=== PATIENT | male | born 1960 | race Caucasian/White ===

== ENCOUNTER 2018-07-01 11:38 | Inpatient (IN) | payer BC, SELFPAY ==
[2018-07-01] MEDS ORDERED: Lidocaine 1% PF 5 ML VIAL ONE (12:36)
[2018-07-01] MEDS ORDERED: Ondansetron HCl/PF 4 MG/2 ML Vial ONE (12:36)
[2018-07-01] MEDS ORDERED: PROPOFOL 200 MG/20 ML VIAL ONE (12:36)
[2018-07-01 12:45] LABS: #Basophils 0.1 thou/uL (0.0-0.2); #Lymphocytes 1.6 thou/uL (1.20-3.40); #Monocytes 0.9 thou/uL (0.11-0.59); #Neutrophils 8.3 thou/uL (1.40-6.50); %Basophils 0.6 % (0.0-1.0); %Eosinophils 0.3 % (0.0-10.0); %Lymphocytes 14.6 % (21.0-51.0); %Monocytes 8.6 % (0.0-10.0); Hemoglobin 15.2 g/dL (14.0-18.0); Mean Corpuscular HGB CONC 33.5 g/dL (32.0-36.0); Mean Corpuscular Hemoglobin 29.1 pg (27.0-31.0); Mean Corpuscular Volume 86.7 fL (78.0-98.0); Mean Platelet Volume 5.4 fL (7.4-10.4); Platelet Count 632 thou/uL (130-400); RBC Distribution Width 11.7 % (11.5-14.5); Red Blood Cell (RBC) Count 5.23 mill/uL (4.70-6.10); White Blood Cell (WBC) Count 10.9 thou/uL (4.8-10.8)
[2018-07-01 13:08] LABS: ALT (SGPT) 13 U/L (8-55); AST (SGOT) 14 U/L (5-34); Albumin 3.7 g/dL (3.5-5.0); Alkaline Phosphatase 62 U/L (40-150); Anion Gap 17 mmol/L (10-20); BUN (Urea Nitrogen) 26 mg/dL (8.4-25.7); Bilirubin, Total 0.5 mg/dL (0.2-1.2); Calc. Creatinine Clearance 0 mL/min (70-130); Calcium 10.9 mg/dL (7.8-10.44); Carbon Dioxide 24 mmol/L (22-29); Chloride 95 mmol/L (98-107); Estimated GFR-MDRD 50; Globulin 3.9 g/dL (2.4-3.5); Glucose 401 mg/dL (70-105); Potassium 5.5 mmol/L (3.5-5.1); Protein, Total 7.6 g/dL (6.0-8.3); Sodium 130 mmol/L (136-145)
--- NOTE | 2018-07-01 13:41 | RAD ---
LEFT FOOT 3 VIEWS: Date: 07/01/18 HISTORY: Toe infection. Foot pain. FINDINGS/IMPRESSION: No fracture, dislocation, bony destruction, or periosteal reaction is seen. A plantar calcaneal spur is present. If there is concern for osteomyelitis, further evaluation with MRI should be performed. POS: WILLIAM
--- NOTE | 2018-07-01 14:27 | HP ---
DATE OF ADMISSION: 07/01/2018 PRIMARY CARE PHYSICIAN: [facility]. REASON FOR ADMISSION: Acute kidney failure, abnormal electrolytes, left diabetic foot infection, uncontrolled diabetes. HISTORY OF PRESENT ILLNESS: A 58-year-old male who has a history of diabetes type 2. He was on insulin as well as metformin. He is not taking any medication for the last couple of months. The patient is in March with his . Since then, the patient is going downhill. He was living in his poor home environment. A few weeks ago, the patient had a heavy object fell down on his left foot. Subsequently, he had inflammatory response in his left foot, which was initially improving, but when he stepped down to stagnated water, since then his left foot is getting swollen, erythematous, tender. The patient saw his primary care physician about a week ago. At that time, primary care physician did bedside debridement as well as the patient was given daily intramuscular antibiotic therapy in his office and the patient was prescribed doxycycline and Flagyl. The patient has completed antibiotic course, but he is not improving. Today, he had regular followup visit with his primary care physician and found with worsening of swelling, erythema and tenderness and that is why he was directed to ER. In the emergency room, x-ray of foot showed soft tissue swelling, but no bony involvement. He has acute kidney failure and abnormal electrolytes. He has uncontrolled blood sugar. The patient is being admitted to medical floor for diabetic foot infection. PAST MEDICAL HISTORY: Diabetes type 2 requiring insulin, dyslipidemia. PAST SURGICAL HISTORY: Wiggins teeth removal. PAST PSYCHIATRIC HISTORY: Reviewed and negative. SOCIAL HISTORY: The patient is . He denies any smoking, alcohol or other illicit drug abuse. FAMILY HISTORY: Diabetes runs among several family members. No family history of coronary artery disease, stroke or cancer. ALLERGIES: PENICILLIN. CURRENT HOME MEDICATIONS: The patient is currently not taking any medication. EMERGENCY ROOM COURSE: The patient has received vancomycin and IV fluid. REVIEW OF SYSTEM: All review of system reviewed and negative except as mentioned in HPI. PHYSICAL EXAMINATION: VITAL SIGNS: On arrival, blood pressure 108/76, pulse 96, respiratory rate 16, temperature 98.1, saturation 97% on room air, weight 104.3 kilograms. GENERAL: The patient is currently alert, awake, in no obvious acute distress. HEAD: Normocephalic, atraumatic. EYES: Pupils round and reactive to light. Extraocular muscle intact. ENT: Oropharynx within normal limits. Moist mucous membrane. No oral lesion, no pharyngeal erythema, no exudate. NECK: Supple, no JVD, no thyromegaly, no carotid bruit, no jugular venous distention. LUNGS: Clear to auscultation without any rhonchi or rales. CARDIAC: S1, S2 regular. No murmur, no gallop, no rub. ABDOMEN: Soft, bowel sounds present, nontender, nondistended. No organomegaly , no mass, no suprapubic tenderness. BACK: Unremarkable. No CVA tenderness. EXTREMITIES: Upper extremities, passive movement of all joints are normal. Lower extremities, left foot is swollen, gangrenous and erythematous changes in plantar aspect of left foot with swollen and purulent drainage from left great toe. NEUROLOGIC: Nonfocal examination. SKIN: No skin rash other than diabetic wet gangrene on the left foot. HEMATOLOGICAL: No lymphadenopathy. PSYCHIATRIC: Normal affect. SIGNIFICANT LABORATORY DATA: CBC, WBC 10.9, hemoglobin 15.2, platelets 632, 000. Lactic acid 1.6. BMP, sodium 130, potassium 5.5, chloride 95, carbon dioxide 24, anion gap 17, BUN 26, creatinine 1.44, glucose 401, calcium 10.9. LFT, albumin 3.7, globulin 3.9, protein 7.6, AST 14, ALT 13, alkaline phosphatase 62. IMAGING: X-ray foot showing soft tissue swelling without any clear cut bony involvement. ASSESSMENT AND PLAN: 1. Left foot diabetic foot infection with wet gangrene. The patient will need MRI foot to rule out underlying osteomyelitis. Most likely, the patient will need surgical debridement. We will consult Wound Care team for wound care as well as general surgeon for incision and debridement. The patient will need broad spectrum antibiotic therapy with vancomycin and Zosyn. At this point, the patient's allergic reaction with penicillin is unclear and undocumented. We will also prescribe Florastor for probiotics. His pain will be controlled with morphine. 2. Diabetes type 2, uncontrolled. We will start insulin 70/30, 10 units subcu a.c. and at bedtime along with Humalog insulin as per moderate sliding scale. Diabetic diet will be given. 3. Acute kidney failure. The patient will be given IV fluid with normal saline 100 mL per hour. Most likely, this is related with underlying infection as well as the patient was taking ibuprofen for the last 1 week. That might have contributed to his renal failure. 4. Hyponatremia and hyperkalemia, likely due to renal failure as well as non- steroidal anti-inflammatory drug use. The patient will be given IV fluid and we will repeat BMP tomorrow. 5. Deep venous thrombosis prophylaxis, Lovenox 40 mg subcu daily. 6. Gastrointestinal prophylaxis, Pepcid 20 mg p.o. b.i.d. 7. Code status: The patient is full code. The patient does not have any surrogate decision maker. Disposition plan based on clinical course. We are expecting the patient's stay in hospital more than 2 midnights. Plan of care discussed with the patient and the patient's ex- at bedside in the emergency room. CIERRA
[2018-07-01] MEDS ORDERED: Sodium Chloride 0.65% Nasal 44 ML BOT EA NARE PRN (15:40)
[2018-07-01] MEDS ORDERED: Loperamide HCl 2 MG CAP PO PRN (15:40)
[2018-07-01] MEDS ORDERED: Dextrose 5% in Water 1,000 ML IV PRN (15:40)
[2018-07-01] MEDS ORDERED: Senokot 8.6 MG TAB PO PRN (15:40)
[2018-07-01] MEDS ORDERED: Ondansetron ODT 4 MG TAB SL PRN (15:40)
[2018-07-01] MEDS ORDERED: Ondansetron HCl/PF 4 MG/2 ML Vial IVP PRN ×3 (15:40→20:12)
[2018-07-01] MEDS ORDERED: Milk Of Magnesia 30 ML UDCUP PO PRN (15:40)
[2018-07-01] MEDS ORDERED: Loratadine 10 MG TAB PO PRN (15:40)
[2018-07-01] MEDS ORDERED: hydrALAZINE 20 MG/ML VIAL SLOW IVP PRN (15:40)
[2018-07-01] MEDS ORDERED: Chloraseptic Spray 180 ml Bottle PO PRN (15:40)
[2018-07-01] MEDS ORDERED: Mag-Al 1200 mg/1200 mg/30 ML UDCUP PO PRN (15:40)
[2018-07-01] MEDS ORDERED: Eucerin (Mineral Oil/Petrolatum,White) 30 gm Jar TOP PRN (15:40)
[2018-07-01] MEDS ORDERED: Acetaminophen 325 MG TAB PO PRN ×2 (15:40)
[2018-07-01] MEDS ORDERED: Diabetic Tussin 200 MG/10 ML UDCUP PO PRN (15:40)
[2018-07-01] MEDS ORDERED: Dextrose 50% Abboject 50 ML SYRINGE SLOW IVP PRN (15:40)
[2018-07-01] MEDS ORDERED: Ondansetron ODT 4 MG TAB PO PRN (15:40)
[2018-07-01] MEDS ORDERED: Artificial Tears 18 DROP/0.9 ML EA EYE PRN (15:40)
[2018-07-01] MEDS ORDERED: Zolpidem Tartrate 5 MG TAB PO PRN (15:40)
[2018-07-01 15:58] VITALS: BMI 25.1
[2018-07-01] MEDS: Sodium Chloride 0.9% 1,000 ML IV SCH (16:15)
[2018-07-01] MEDS: Piperacillin/Tazobactam 3.375 GM in Sodium Chloride 0.9% 100 ML IVPB SCH ×2 (17:23→23:32)
[2018-07-01] MEDS: Insulin NPH/Reg Insulin Hm 300 UNITS/3 ML VIAL SC SCH (17:24)
[2018-07-01] MEDS ORDERED: Insulin Regular 300 UNITS/3 ML VIAL ONE (18:52)
--- NOTE | 2018-07-01 19:14 | HP ---
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 He had emergency room and he was admitted at 1 0:30 this morning. He has listed an allergy to PENICILLIN, but vancomycin and Zosyn has been ordered . X-rays of the left foot are unremarkable. Clinical examination reveals palpable pulses. He does not smoke. He has severe diabetic infection in left foot with blistering skin, plantar aspect of eugene t with underlying pus and hematoma. He has an open wound in the medial aspect of left great toe comm unicating to the metatarsophalangeal joint by digital palpation. He was admitted at 10:30 this paty roca, I received the consult at 17:00. Diabetic diet has been ordered. I have stopped that fortunatel y has not eaten. ALLERGIES: PENICILLIN. TOBACCO: None. ALCOHOL: Socially, rarely. MEDICATIONS AT HOME: He takes doxycycline, metronidazole. He currently is not taking any medication s. PAST MEDICAL HISTORY: Diabetes mellitus type 2 requiring insulin, dyslipidemia, although he is not t aking medications, also wisdom teeth extraction. SOCIAL HISTORY: Patient is single, from his . REVIEW OF SYSTEMS: Noncontributory. FAMILY HISTORY: Noncontributory. PHYSICAL EXAMINATION: VITAL SIGNS: 6 feet, 295 pounds, 25 BMI, 98.5, 66, 145/75. HEAD, EYES, EARS, NOSE, AND THROAT: Unremarkable. LUNGS: Clear to auscultation. CARDIAC: Regular rate and rhythm without murmur or gallop. ABDOMEN: Soft, nontender. EXTREMITIES: Palpable femoral, popliteal, dorsalis pedis pulses and posterior tibial pulses. Left f oot reveals wound extending to the bone and metatarsophalangeal joint. There is severe edema and kamryn lulitis. There is blistering skin extending plantar midfoot with copious amount of hematoma and puru lent material. There is open wound on the plantar aspect of the foot. Also, that it is so tender, I cannot probe it. LABORATORY DATA: Sodium 130, potassium 5.5, BUN 26, creatinine 1.44, white count 10, hemoglobin 15. ASSESSMENT AND PLAN: 1. Noncompliant diabetic with a severe diabetic foot infection, left. Clinically, he has severe arcelia p infection with stigmata of advanced skin infection and deep tissue infection. Would recommend inci meme and drainage, probably resulting amputation of the left great toe and adjacent toe as indicated. Risks and benefits explained open wound that will heal secondarily. 2. PENICILLIN allergy, did discontinue Zosyn.
[2018-07-01] MEDS ORDERED: Acetaminophen 500 MG TAB PO PRN (19:37)
[2018-07-01] MEDS ORDERED: traMADol HCl 50 MG TAB PO PRN ×2 (19:37)
[2018-07-01] MEDS ORDERED: Midazolam HCl 2 mg/2 ml Vial ONE (20:12)
[2018-07-01] MEDS ORDERED: Promethazine HCl 25 MG/ML VIAL IM PRN (20:12)
[2018-07-01] MEDS ORDERED: Fentanyl 100 MCG/2 ML VIAL ONE ×4 (20:12→20:50)
[2018-07-01] MEDS ORDERED: Promethazine HCl 25 MG/ML VIAL SLOW IVP PRN (20:12)
[2018-07-01] MEDS ORDERED: Promethazine HCl 25 MG/ML VIAL ONE (20:42)
[2018-07-01] MEDS: Famotidine 20 MG TAB PO SCH (21:58)
[2018-07-01] MEDS: Atorvastatin Calcium 20 MG TAB PO SCH (21:58)
[2018-07-01] MEDS: Morphine 2 MG/ML SYRINGE SLOW IVP PRN (23:24)
--- NOTE | 2018-07-02 01:42 | OP ---
DATE: 07/01/2018 PREOPERATIVE DIAGNOSES: Severe necrotizing diabetic infection, left foot; noncompliant diabetic, not taking his medications. POSTOPERATIVE DIAGNOSES: Severe necrotizing diabetic infection, left foot; noncompliant diabetic, n ot taking his medications. PROCEDURE: Amputation of left great toe and metatarsal. Wound in left toe healing by secondary inte ntion. Good blood supply. Palpable pedal pulses. Suture ligation required for hemostasis. Cautery required. SURGEON: Denis Sears MD ANESTHESIA: General. FINDINGS: Blistered skin with underlying pus, severe, deep wound into the metatarsophalangeal joint with necrotizing infection, soft tissues, culture and sensitivity submitted. PROCEDURE IN DETAIL: The patient was taken to the operating room, where under general anesthesia, le ft lower extremity was prepared with ChloraPrep and draped in routine infection. A deep tract was no nataly in the webspace of the great toe extending to the plantar aspect of the foot, connecting with the soft tissue defect plantar. Ray amputation of the left great toe undertaken, preserving as much ski n as possible, excised the open wounds. Metatarsal was transected with a bone cutter, resected proxi harpreet with rongeur. Hemostasis was obtained with a cautery as connective tissue debrided and suture ligation with [id number] [id number] Vicryl was used for small arterial bleeding. Good hemostasis was n oted. Wound was irrigated with saline, wet-to-dry dressings applied. The patient tolerated the proc edure well.
[2018-07-02] MEDS: Vancomycin HCl 1.25 GM in Sodium Chloride 0.9% 250 ML 250 ML IVPB SCH ×2 (01:55→11:25)
[2018-07-02] MEDS: HYDROcodone/Acetaminophen 5/325 mg Tablet PO PRN ×3 (02:08→10:00)
[2018-07-02] MEDS: Morphine 2 MG/ML SYRINGE SLOW IVP PRN ×2 (03:30→10:00)
[2018-07-02] MEDS: HumaLOG 300 UNITS/3 ML VIAL SC PRN ×3 (05:39→21:27)
[2018-07-02 05:41] LABS: Hemoglobin A1c 14.1 % (4.0-6.0)
[2018-07-02] MEDS: Piperacillin/Tazobactam 3.375 GM in Sodium Chloride 0.9% 100 ML IVPB SCH ×3 (05:41→17:55)
[2018-07-02 05:50] LABS: #Eosinphils 0.1 thou/uL (0.0-0.7); #Lymphocytes 2.4 thou/uL (1.20-3.40); #Monocytes 1.1 thou/uL (0.11-0.59); #Neutrophils 6.9 thou/uL (1.40-6.50); %Basophils 0.2 % (0.0-1.0); %Eosinophils 1.2 % (0.0-10.0); %Monocytes 10.4 % (0.0-10.0); %Neutrophils 65.3 % (42.0-75.0); Mean Corpuscular HGB CONC 33.8 g/dL (32.0-36.0); Mean Corpuscular Hemoglobin 29.7 pg (27.0-31.0); Mean Corpuscular Volume 87.7 fL (78.0-98.0); Mean Platelet Volume 5.6 fL (7.4-10.4); Platelet Count 481 thou/uL (130-400); RBC Distribution Width 11.8 % (11.5-14.5); Red Blood Cell (RBC) Count 4.37 mill/uL (4.70-6.10); White Blood Cell (WBC) Count 10.6 thou/uL (4.8-10.8)
[2018-07-02 06:34] LABS: ALT (SGPT) 10 U/L (8-55); AST (SGOT) 10 U/L (5-34); Alkaline Phosphatase 48 U/L (40-150); Anion Gap 10 mmol/L (10-20); BUN (Urea Nitrogen) 20 mg/dL (8.4-25.7); Bilirubin, Total 0.4 mg/dL (0.2-1.2); CRP (Inflammatory) 2.05 mg/dL (= or < 0.5); Calc. Creatinine Clearance 99 mL/min (70-130); Calcium 9.1 mg/dL (7.8-10.44); Carbon Dioxide 28 mmol/L (22-29); Cardiac Risk 3.8 (Less than 4.5); Chloride 100 mmol/L (98-107); Cholesterol 111 mg/dl (< 200 Desired); Estimated GFR-MDRD 76; Glucose 229 mg/dL (70-105); HDL Cholesterol 29 mg/dL (>60 Neg Risk); LDL Cholesterol, Calculated 58 mg/dL; Sodium 134 mmol/L (136-145); Triglycerides 122 mg/dL (Less than 150)
--- NOTE | 2018-07-02 07:33 | PRG ---
DATE OF SERVICE: 07/02/2018 Mike Dyer is status post amputation of left great toe and metatarsal. His dressing is dry. He segovia s been afebrile overnight, 98.4 degrees, 74, 155/83. Laboratories; gram stain revealed gram positive rods, gram positive cocci. He is on the appropriate antibiotics. Wound Care will place a wound VAC. I discussed with the patient's ex- yesterday hi s living situation and she showed me pictures, his house is very untidy, unkept and his ex- is co ncerned about his mental status and living situation. The patient states that he does have transport ation to in some way make it to Wound Care twice a week for a charitable wound VAC application. My p yara would be to continue intravenous antibiotics, place a wound VAC today. Plan discharge home or [facility] or some other arrangements per senior case manager later this week on oral antibiotics for 2 weeks and outpatient wound care, [facility] charitable VAC. The patient can weightbear as tolerated, ambulating about the room for necessary daily activities with postop shoe. I will see him in my off ice in 2 weeks post-discharge. We will see him later this week with wound VAC changes.
--- NOTE | 2018-07-02 07:43 | ADD-HP ---
ADDENDUM The patient is not allergic to penicillin. The patient states penicillin has caused diarrhea in the past. He does not have an allergy to penicillin.
[2018-07-02] MEDS: Famotidine 20 MG TAB PO SCH ×2 (07:44→21:25)
[2018-07-02] MEDS: Saccharomyces boulardii 250 MG CAP PO SCH (07:44)
[2018-07-02] MEDS: Enoxaparin Sodium 40 MG/0.4 ML SYRINGE SC SCH (07:44)
[2018-07-02] MEDS: Insulin NPH/Reg Insulin Hm 300 UNITS/3 ML VIAL SC SCH ×3 (07:45→15:40)
[2018-07-02] MEDS ORDERED: Polyethylene Glycol 3350 17 GM Packet PO SCH (09:00)
[2018-07-02] MEDS ORDERED: Morphine 4 MG/ML Carpuject SLOW IVP SCH (11:00)
[2018-07-02] MEDS ORDERED: Morphine 4 MG/ML VIAL SLOW IVP SCH (11:15)
[2018-07-02] MEDS: Sodium Chloride 0.9% 1,000 ML IV SCH (11:17)
[2018-07-02] MEDS ORDERED: Lidocaine 4% Topical Sol 50 ML BOT TOP PRN (11:21)
[2018-07-02] MEDS: HYDROcodone/Acetaminophen 10/325 mg Tablet PO PRN ×3 (12:12→21:24)
--- NOTE | 2018-07-02 19:11 | PDOC.PN ---
- Subjective Encounter Start Date: 07/02/18 Encounter Start Time: 11:00 Patient seen and examined for diabetic foot infection. Pain not well controlled. No other complaints. No overnight events - Objective Resuscitation Status: Resuscitation Status FULL:Full Resuscitation MAR Reviewed: Yes Vital Signs & Weight: Vital Signs (12 hours) Temp Pulse Resp BP 07/02/18 11:54 99 F 75 26 H 158/84 H 07/02/18 07:26 98.1 F 74 19 137/83 Weight Admit Weight 195 lb 8 oz Weight 195 lb 8 oz I&O: 07/01/18 07/02/18 07/03/18 06:59 06:59 06:59 Intake Total 200 Output Total 240 Balance -40 Result Diagrams: 07/02/18 03:44 07/02/18 03:44 Additional Labs: Accuchecks 07/02/18 07/02/18 07/02/18 15:26 11:53 05:29 POC Glucose 293 H 227 H 221 H 07/01/18 07/01/18 20:07 18:48 POC Glucose 285 H 340 H Radiology Reviewed by me: Yes (foot XR - no gas) Phys Exam - Physical Examination Constitutional: NAD Neck: no nodes, no JVD Respiratory: no wheezing, no rales, no rhonchi, clear to auscultation bilateral Cardiovascular: RRR, no rub no heaves/pulsations Gastrointestinal: soft, non-tender, no distention, positive bowel sounds Musculoskeletal: no edema foot dressing + Neurological: non-focal, normal sensation, moves all 4 limbs Psychiatric: normal affect, A&O x 3 Dx/Plan - Plan DVT proph w/SCDs IMPRESSION: 1. Sepsis due to diabetic foot infection s/p amputation of left great toe/ metatarsal 2. DM2 - uncontrolled 3. LEODAN on CKD2/Hyperkalemia - improving 4. Dyslipidemia / Hyponatremia PLAN: Adjust pain meds Cont current Atbx Consult periodicals clerk Cont sliding scale Change 70/30 to NPH 20 qam and 10 qpm Cont to monitor Review of Systems - Review of Systems Respiratory: negative: Cough, Dry, Shortness of Breath, Hemoptysis, SOB with Excertion, Pleuritic Pain, Sputum, Wheezing Cardiovascular: negative: chest pain, palpitations, orthopnea, paroxysmal nocturnal dyspnea, edema, light headedness, other - Medications/Allergies Allergies/Adverse Reactions: Allergies Allergy/AdvReac Type Severity Reaction Status Date / Time Penicillins AdvReac Mild Diarrhea Verified 07/02/18 15:00 Medications: Current Medications Acetaminophen (Tylenol) 650 mg PO Q4H PRN PRN Reason: Headache/Fever or Pain Acetaminophen (Tylenol) 1,000 mg PO Q6H PRN PRN Reason: Moderate to Severe Pain (6-10) Hydrocodone Bitart/Acetaminophen ([place] 5/325) 1 tab PO Q4H PRN PRN Reason: Moderate Pain (4-6) Last Admin: 07/02/18 10:00 Dose: 1 tab Hydrocodone Bitart/Acetaminophen ([place] 10/325) 1 tab PO Q4H PRN PRN Reason: Severe Pain (7-10) Last Admin: 07/02/18 15:41 Dose: 1 tab Al Hydroxide/Mg Hydroxide (Maalox) 30 ml PO Q6H PRN PRN Reason: Heartburn or Indigestion Artificial Tears (Tears Naturale) 0 drop EA EYE PRN PRN PRN Reason: Dry Eyes Atorvastatin Calcium (Lipitor) [address] [facility] Last Admin: 07/01/18 21:58 Dose: 20 mg Dextrose/Water (Dextrose 50%) 25 gm SLOW IVP PRN PRN PRN Reason: Hypoglycemia Enoxaparin Sodium (Lovenox) [address] [facility] Last Admin: 07/02/18 07:44 Dose: 40 mg Famotidine (Pepcid) [address] [facility] Last Admin: 07/02/18 07:44 Dose: 20 mg Glucagon (Glucagon) 1 mg IM PRN PRN PRN Reason: Hypoglycemia Guaifenesin (Robitussin Sf) 200 mg PO Q4H PRN PRN Reason: Cough Hydralazine HCl (Apresoline) 10 mg SLOW IVP Q4H PRN PRN Reason: Systolic BP > 180 Sodium Chloride (Normal Saline 0.9%) 1,000 mls @ 100 mls/hr IV .Q10H [facility] Last Admin: 07/02/18 11:17 Dose: 1,000 mls Dextrose/Water (D5w) 1,000 mls @ 0 mls/hr IV .Q0M PRN PRN Reason: Hypoglycemia Piperacillin Sod/Tazobactam (Sod 3.375 gm/ Sodium Chloride) 100 mls @ 200 mls/ hr IVPB Q6HR [facility] Last Admin: 07/02/18 17:55 Dose: 100 mls Vancomycin HCl 1.25 gm/ Sodium (Chloride) 250 mls @ 166.667 mls/hr IVPB 0100, 1300 [facility] Last Admin: 07/02/18 11:25 Dose: 250 mls Insulin Human Isoph/Insulin Regular (Humulin 70/30) [address] [facility] Last Admin: 07/02/18 15:40 Dose: 10 unit Insulin Human Lispro (Humalog) 0 units SC .MODERATE SLIDING SC PRN PRN Reason: Moderate Correctional Scale Last Admin: 07/02/18 15:39 Dose: 6 unit Insulin Human Lispro (Humalog) 0 units SC .BEDTIME SLIDING SC PRN PRN Reason: Bedtime Correctional Scale Lidocaine HCl (Xylocaine 4% Topical Belkis) 0 ml TOP PRN PRN PRN Reason: WOUND VAC DRESSING CHANGES Loperamide HCl (Imodium) 2 mg PO PRN PRN PRN Reason: Diarrhea/Loose Stools Loratadine (Claritin) 10 mg PO DAILYPRN PRN PRN Reason: Sinus Symptoms Magnesium Hydroxide (Milk Of Magnesium) 30 ml PO DAILYPRN PRN PRN Reason: Constipation Mineral Oil/White Petrolatum (Eucerin Cream) 0 gm TOP BIDPRN PRN PRN Reason: Dry Skin Miscellaneous Medication (Pharmacy To Dose) 1 each IVPB ONE PRN PRN Reason: Pharmacy to dose Stop: 07/11/18 15:41 Morphine Sulfate (Morphine) 2 mg SLOW IVP Q4H PRN PRN Reason: Pain Last Admin: 07/02/18 10:00 Dose: 2 mg Morphine Sulfate (Morphine) 4 mg SLOW IVP Q4H PRN PRN Reason: Severe Pain (7-10) Stop: 07/03/18 10:50 Ondansetron HCl (Zofran Odt) 4 mg PO Q6H PRN PRN Reason: Nausea/Vomiting Ondansetron HCl (Zofran) 4 mg IVP Q6H PRN PRN Reason: Nausea/Vomiting Phenol (Chloraseptic [place] 180 Ml Bot) 0 ml PO PRN PRN PRN Reason: Sore Throat Polyethylene Glycol (Miralax) [address] [facility] Saccharomyces Boulardii (Florastor) 250 mg PO DAILY [facility] Last Admin: 07/02/18 07:44 Dose: 250 mg Senna (Senokot) 2 tab PO HSPRN PRN PRN Reason: Constipation Senna/Docusate Sodium (Senokot S) [address] [facility] Sodium Chloride (Murray Nasal [place] 0.65%) 0 ml EA NARE QIDPRN PRN PRN Reason: Nasal Congestion Tramadol HCl (Ultram) 50 mg PO Q6H PRN PRN Reason: Pain Tramadol HCl (Ultram) 100 mg PO Q6H PRN PRN Reason: Pain Last Admin: 07/01/18 22:00 Dose: 100 mg Zolpidem Tartrate (Ambien) 5 mg PO HSPRN PRN PRN Reason: Insomnia
[2018-07-02] MEDS: Senokot S 8.6-50 MG TAB PO SCH (21:25)
[2018-07-02] MEDS: Atorvastatin Calcium 20 MG TAB PO SCH (21:25)
[2018-07-03] MEDS: Sodium Chloride 0.9% 1,000 ML IV SCH ×4 (00:06→22:15)
[2018-07-03] MEDS: Piperacillin/Tazobactam 3.375 GM in Sodium Chloride 0.9% 100 ML IVPB SCH ×4 (00:06→18:26)
[2018-07-03] MEDS: Morphine 2 MG/ML SYRINGE SLOW IVP PRN (00:17)
[2018-07-03 00:35] LABS: Vancomycin, Trough 8.1 ug/mL
[2018-07-03] MEDS: Vancomycin HCl 1.25 GM in Sodium Chloride 0.9% 250 ML 250 ML IVPB SCH ×3 (01:15→16:29)
[2018-07-03] MEDS: HumaLOG 300 UNITS/3 ML VIAL SC PRN ×4 (01:31→21:00)
[2018-07-03] MEDS: HYDROcodone/Acetaminophen 10/325 mg Tablet PO PRN ×4 (02:40→20:58)
[2018-07-03] MEDS: Famotidine 20 MG TAB PO SCH ×2 (08:35→20:57)
[2018-07-03] MEDS: Saccharomyces boulardii 250 MG CAP PO SCH (08:35)
[2018-07-03] MEDS: Enoxaparin Sodium 40 MG/0.4 ML SYRINGE SC SCH (08:36)
[2018-07-03] MEDS: Senokot S 8.6-50 MG TAB PO SCH ×2 (08:37→20:57)
[2018-07-03] MEDS: Polyethylene Glycol 3350 17 GM Packet PO SCH (08:37)
[2018-07-03] MEDS: NPH, Human Insulin Isophane 300 UNIT/3 ML VIAL SC SCH (08:38)
[2018-07-03] MEDS ORDERED: Morphine 4 MG/ML VIAL SLOW IVP PRN (12:06)
[2018-07-03] MEDS: Gabapentin 100 MG CAP PO SCH ×2 (15:32→20:58)
--- NOTE | 2018-07-03 16:02 | PRG ---
DATE OF SERVICE: 07/03/2018 SUBJECTIVE: Mike Dyer is doing well today. He remains afebrile. White count 10, hemoglobin 13. Accu-Cheks 190-320. Cultures from his foot revealed Enterococcus, Streptococcus. The patient is do ing well. Wound Care changed his dressing next 24-48 hours from a surgical dressing change. F rom a surgical standpoint, the patient will be discharged home with outpatient wound care, wound VAC outpatient wound care. He can be on oral antibiotics for two weeks. Probably sent home with A darrinin. I will follow him in the outpatient 2-3 weeks.
[2018-07-03] MEDS: Atorvastatin Calcium 20 MG TAB PO SCH (20:58)
[2018-07-03] MEDS ORDERED: NPH, Human Insulin Isophane 300 UNIT/3 ML VIAL SC SCH (21:00)
--- NOTE | 2018-07-03 23:00 | PDOC.PN ---
- Subjective Encounter Start Date: 07/03/18 Encounter Start Time: 11:30 Patient seen and examined diabetic foot infection. No new complaints. No overnight events - Objective Resuscitation Status: Resuscitation Status FULL:Full Resuscitation MAR Reviewed: Yes Vital Signs & Weight: Vital Signs (12 hours) Temp Pulse Resp BP Pulse Ox 07/03/18 19:43 98.4 F 62 18 118/72 95 Weight Admit Weight 195 lb 8 oz Weight 195 lb 8 oz I&O: 07/02/18 07/03/18 07/04/18 06:59 06:59 06:59 Intake Total 200 1821 Output Total 240 900 Balance -40 921 Result Diagrams: 07/02/18 03:44 07/02/18 03:44 Additional Labs: Accuchecks 07/03/18 07/03/18 07/03/18 19:46 16:10 11:17 POC Glucose 278 H 199 H 321 H 07/03/18 07/03/18 06:16 01:28 POC Glucose 192 H 205 H Phys Exam - Physical Examination Constitutional: NAD Respiratory: no wheezing, no rhonchi Cardiovascular: RRR, no rub Gastrointestinal: soft, non-tender, positive bowel sounds Musculoskeletal: no edema dressing and wound vac + Dx/Plan - Plan DVT proph w/SCDs IMPRESSION: 1. Sepsis due to diabetic foot infection s/p amputation of left great toe/ metatarsal 2. DM2 - uncontrolled 3. LEODAN on CKD2/Hyperkalemia - improving 4. Dyslipidemia / Hyponatremia PLAN: Cont current Atbx Cont sliding scale Change NPH 20 qam and 10 qpm Cont to monitor DC in AM if stable Review of Systems - Review of Systems Respiratory: negative: Cough, Dry, Shortness of Breath, Hemoptysis, SOB with Excertion, Pleuritic Pain, Sputum, Wheezing Cardiovascular: negative: chest pain, palpitations, orthopnea, paroxysmal nocturnal dyspnea, edema, light headedness, other - Medications/Allergies Allergies/Adverse Reactions: Allergies Allergy/AdvReac Type Severity Reaction Status Date / Time No Known Drug Allergies Allergy Verified 07/03/18 08:35 Medications: Current Medications Acetaminophen (Tylenol) 650 mg PO Q4H PRN PRN Reason: Headache/Fever or Pain Acetaminophen (Tylenol) 1,000 mg PO Q6H PRN PRN Reason: Moderate to Severe Pain (6-10) Hydrocodone Bitart/Acetaminophen ([place] 5/325) 1 tab PO Q4H PRN PRN Reason: Moderate Pain (4-6) Last Admin: 07/02/18 10:00 Dose: 1 tab Hydrocodone Bitart/Acetaminophen ([place] 10/325) 1 tab PO Q4H PRN PRN Reason: Severe Pain (7-10) Last Admin: 07/03/18 20:58 Dose: 1 tab Al Hydroxide/Mg Hydroxide (Maalox) 30 ml PO Q6H PRN PRN Reason: Heartburn or Indigestion Artificial Tears (Tears Naturale) 0 drop EA EYE PRN PRN PRN Reason: Dry Eyes Atorvastatin Calcium (Lipitor) 20 mg PO HS [facility] Last Admin: 07/03/18 20:58 Dose: 20 mg Dextrose/Water (Dextrose 50%) 25 gm SLOW IVP PRN PRN PRN Reason: Hypoglycemia Enoxaparin Sodium (Lovenox) 40 mg SC 0900 [facility] Last Admin: 07/03/18 08:36 Dose: 40 mg Famotidine (Pepcid) 20 mg PO BID [facility] Last Admin: 07/03/18 20:57 Dose: 20 mg Gabapentin (Neurontin) 100 mg PO TID [facility] Last Admin: 07/03/18 20:58 Dose: 100 mg Glucagon (Glucagon) 1 mg IM PRN PRN PRN Reason: Hypoglycemia Guaifenesin (Robitussin Sf) 200 mg PO Q4H PRN PRN Reason: Cough Hydralazine HCl (Apresoline) 10 mg SLOW IVP Q4H PRN PRN Reason: Systolic BP > 180 Dextrose/Water (D5w) 1,000 mls @ 0 mls/hr IV .Q0M PRN PRN Reason: Hypoglycemia Piperacillin Sod/Tazobactam (Sod 3.375 gm/ Sodium Chloride) 100 mls @ 200 mls/ hr IVPB Q6HR [facility] Last Admin: 07/03/18 18:26 Dose: 100 mls Vancomycin HCl 1.25 gm/ Sodium (Chloride) 250 mls @ 166.667 mls/hr IVPB 0100, 0900,1700 [facility] Last Admin: 07/03/18 16:29 Dose: 250 mls Sodium Chloride (Normal Saline 0.9%) 1,000 mls @ 50 mls/hr IV .Q20H [facility] Last Admin: 07/03/18 22:15 Dose: 1,000 mls Insulin Human Lispro (Humalog) 0 units SC .MODERATE SLIDING SC PRN PRN Reason: Moderate Correctional Scale Last Admin: 07/03/18 16:31 Dose: 2 unit Insulin Human Lispro (Humalog) 0 units SC .BEDTIME SLIDING SC PRN PRN Reason: Bedtime Correctional Scale Last Admin: 07/03/18 21:00 Dose: 3 unit Insulin Human NPH (Humulin N) 20 unit SC QAM [facility] Last Admin: 07/03/18 08:38 Dose: 20 unit Insulin Human NPH (Humulin N) 15 unit SC QPM [facility] Last Admin: 07/03/18 20:59 Dose: 15 unit Lidocaine HCl (Xylocaine 4% Topical Belkis) 0 ml TOP PRN PRN PRN Reason: WOUND VAC DRESSING CHANGES Loperamide HCl (Imodium) 2 mg PO PRN PRN PRN Reason: Diarrhea/Loose Stools Loratadine (Claritin) 10 mg PO DAILYPRN PRN PRN Reason: Sinus Symptoms Magnesium Hydroxide (Milk Of Magnesium) 30 ml PO DAILYPRN PRN PRN Reason: Constipation Mineral Oil/White Petrolatum (Eucerin Cream) 0 gm TOP BIDPRN PRN PRN Reason: Dry Skin Miscellaneous Medication (Pharmacy To Dose) 1 each IVPB ONE PRN PRN Reason: Pharmacy to dose Stop: 07/11/18 15:41 Morphine Sulfate (Morphine) 2 mg SLOW IVP Q4H PRN PRN Reason: Pain Last Admin: 07/03/18 00:17 Dose: 2 mg Morphine Sulfate (Morphine) 4 mg SLOW IVP DAILY PRN PRN Reason: Wound care Ondansetron HCl (Zofran Odt) 4 mg PO Q6H PRN PRN Reason: Nausea/Vomiting Ondansetron HCl (Zofran) 4 mg IVP Q6H PRN PRN Reason: Nausea/Vomiting Phenol (Chloraseptic [place] 180 Ml Bot) 0 ml PO PRN PRN PRN Reason: Sore Throat Polyethylene Glycol (Miralax) 17 gm PO DAILY [facility] Last Admin: 07/03/18 08:37 Dose: Not Given Saccharomyces Boulardii (Florastor) 250 mg PO DAILY [facility] Last Admin: 07/03/18 08:35 Dose: 250 mg Senna (Senokot) 2 tab PO HSPRN PRN PRN Reason: Constipation Senna/Docusate Sodium (Senokot S) 2 tab PO BID [facility] Last Admin: 07/03/18 20:57 Dose: Not Given Sodium Chloride (Purdy Nasal [place] 0.65%) 0 ml EA NARE QIDPRN PRN PRN Reason: Nasal Congestion Sodium Chloride (Flush - Normal Saline) 10 ml IVF Q12HR [facility] Last Admin: 07/03/18 20:59 Dose: 10 ml Sodium Chloride (Flush - Normal Saline) 10 ml IVF PRN PRN PRN Reason: Saline Flush Tramadol HCl (Ultram) 50 mg PO Q6H PRN PRN Reason: Pain Last Admin: 07/02/18 21:24 Dose: 50 mg Tramadol HCl (Ultram) 100 mg PO Q6H PRN PRN Reason: Pain Last Admin: 07/01/18 22:00 Dose: 100 mg Zolpidem Tartrate (Ambien) 5 mg PO HSPRN PRN PRN Reason: Insomnia
[2018-07-04] MEDS: HYDROcodone/Acetaminophen 10/325 mg Tablet PO PRN ×4 (00:59→18:12)
[2018-07-04] MEDS: Piperacillin/Tazobactam 3.375 GM in Sodium Chloride 0.9% 100 ML IVPB SCH ×3 (00:59→11:38)
[2018-07-04 01:26] LABS: Vancomycin, Trough 14.3 ug/mL
[2018-07-04] MEDS: Vancomycin HCl 1.25 GM in Sodium Chloride 0.9% 250 ML 250 ML IVPB SCH ×2 (02:39→09:08)
[2018-07-04] MEDS: Saccharomyces boulardii 250 MG CAP PO SCH (09:03)
[2018-07-04] MEDS: Famotidine 20 MG TAB PO SCH (09:03)
[2018-07-04] MEDS: Gabapentin 100 MG CAP PO SCH ×2 (09:03→15:10)
[2018-07-04] MEDS: Enoxaparin Sodium 40 MG/0.4 ML SYRINGE SC SCH (09:06)
[2018-07-04] MEDS: NPH, Human Insulin Isophane 300 UNIT/3 ML VIAL SC SCH (09:07)
[2018-07-04] MEDS: Senokot S 8.6-50 MG TAB PO SCH (09:07)
[2018-07-04] MEDS: Polyethylene Glycol 3350 17 GM Packet PO SCH (09:07)
[2018-07-04] MEDS: HumaLOG 300 UNITS/3 ML VIAL SC PRN ×2 (13:43→17:36)
--- NOTE | 2018-07-04 14:48 | PRG ---
DATE OF SERVICE: 07/04/2018 Mike Dyer is doing well today. I requested Wound Care call me to review the wound, but I was not called despite same request being written on the room black board. Per pictures and report, the woun d looks good. There is no cellulitis and there is good granulation tissue. There is no evidence of PAD. The patient has good pulses and good arterial bleeding at that time of amputation. Cultures re vealed Enterococcus. At this point, the patient is ready for discharge on oral antibiotics. He shou ld follow up in my office in about 2 weeks. He should have an outpatient wound care appointmen t twice a week with VAC changes twice a week, probably Sunday and at [facility]. There are social issues at hand that needed to be worked out. Today, I discontinued the vancomycin and Zos yn IV and changed him to Augmentin p.o. which should be on for approximately 14 days. He should foll ow up in my office in 2 weeks or I can see him in outpatient wound care where they can call me in one of these visits in two weeks. At this point, I will see him as needed in this hospitalization.
[2018-07-04 19:26] VITALS: BP 168/80; TEMP 98.5
[2018-07-04] MEDS ORDERED: Amoxicillin/Potassium Clav 500 MG TAB PO SCH (21:00)
--- NOTE | 2018-07-05 14:12 | DIS ---
DATE OF DISCHARGE: 07/04/2018 DISCHARGE DISPOSITION: Home. FOLLOWUP: 1. Follow up with primary care physician at [facility] in 1 week. 2. Follow up with Dr. Sears next week. 3. Home wound VAC has been arranged. The patient will follow up with outpatient wound care next Sun. The patient was seen and examined on the day of discharge. Denies any new complaints. No chest pain , shortness of breath, palpitations reported. DISCHARGE MEDICATIONS: 1. Augmentin 500 mg twice a day for next 2 weeks. 2. NPH 20 units in the morning and 15 units in the evening. 3. Tylenol #3 as needed. INPATIENT CONSULTANTS: General Surgery, Dr. Sears. BRIEF HOSPITAL COURSE: Patient is a 58-year-old white male with diabetes mellitus, type 2, presented to the hospital with left foot swelling. Please refer to the history and physical for further detai ls. The patient was admitted to the hospital with a diagnosis of diabetic foot infection. The patient wa s seen by General Surgery, Dr. Sears. Due to severe necrotizing diabetic foot infection, he underwe nt amputation of the left great toe and metatarsal. Wound VAC has been arranged. The patient has be en cleared by General Surgery for discharge. Patient also had acute kidney injury on admission that has resolved. He also was dehydrated with abn ormal electrolytes that has been corrected. SIGNIFICANT LABORATORY DATA: ESR 34, potassium maximum was 5.5, creatinine on admission 1.44. Hemog lobin A1c 14.1. Bacterial culture showed Enterococcus and Streptococcus. Foot x-ray was negative fo r osteomyelitis. CRP of 2.05. IMPRESSION: 1. Sepsis secondary to diabetic foot infection. The patient underwent amputation of the left great toe with metatarsals. 2. Uncontrolled diabetes mellitus, type 2. 3. Acute kidney injury on chronic kidney disease, stage 2, resolved. 4. Hyperkalemia, corrected. 5. Hyponatremia, resolved. 6. Dyslipidemia. 7. Elevated inflammatory markers. 8. Dehydration. Total time coordinating the discharge of this patient was 38 minutes.
--- NOTE | 2018-07-07 19:39 | EKG ---
Test Reason : Blood Pressure : / mmHG Vent. Rate : 071 BPM Atrial Rate : 071 BPM P-R Int : 160 ms QRS Dur : 078 ms QT Int : 404 ms P-R-T Axes : 062 039 047 degrees QTc Int : 439 ms Sinus rhythm with Premature atrial complexes Nonspecific T wave abnormality Abnormal ECG No previous ECGs available Confirmed by Carlos DAVIS ([id number]) on 07/07/2018 7:39:18 PM Referred By: ODILIA Confirmed By:Carlos DAVIS
== END 2018-07-04 20:30 | disposition home or self-care (01) | DRG 854 ==
LOC: ERS 11:38 → T4-A 13:26
PROVIDERS: ADMIT Internal Medicine; ATTEND Internal Medicine
PROC: 0Y6Q0Z0 Detachment at Left 1st Toe, Complete, Open Approach (ICD-10-PCS; principal; 2018-07-01)
DX: A41.9 Sepsis, unspecified organism (principal); E11.52 Type 2 diabetes mellitus with diabetic peripheral angiopathy with gangrene; I96 Gangrene, not elsewhere classified; L03.116 Cellulitis of left lower limb; N17.9 Acute kidney failure, unspecified; E87.1 Hypo-osmolality and hyponatremia; E11.65 Type 2 diabetes mellitus with hyperglycemia; E11.621 Type 2 diabetes mellitus with foot ulcer; Z79.4 Long term (current) use of insulin; Z79.84 Long term (current) use of oral hypoglycemic drugs; E78.5 Hyperlipidemia, unspecified; W20.8XXA Other cause of strike by thrown, projected or falling object, initial encounter; E87.5 Hyperkalemia; I12.9 Hypertensive chronic kidney disease with stage 1 through stage 4 chronic kidney disease, or unspecified chronic kidney disease; E11.22 Type 2 diabetes mellitus with diabetic chronic kidney disease; N18.2 Chronic kidney disease, stage 2 (mild); E86.0 Dehydration
CPT/HCPCS: 36415; 36416; 80053; 80061; 80202; 83036; 83605; 85025; 85652; 86140; 87070; 87077; 87186; 87205; 88305; 93005; 93010; 96361; 96365; A4216; G8978-GP-CM; G8979-GP-CK; J1650; J1815; J2001; J2250; J2270; J2405; J2543; J2550; J2704; J3010; J3370; J7050

== ENCOUNTER 2018-07-09 14:04 | Outpatient (CLI) | payer OTHER, SELFPAY ==
[2018-07-09] MEDS ORDERED: Sodium Chloride 0.9% 15 ML NEB ONE (15:00)
[2018-07-09] MEDS ORDERED: Lidocaine 4% Topical Sol 50 ML BOT ONE (15:00)
== END 2018-07-09 14:05 | disposition home or self-care (01) ==
LOC: WCC 14:04
PROVIDERS: ATTEND Family Medicine
DX: T81.89XD Other complications of procedures, not elsewhere classified, subsequent encounter (principal)
CPT/HCPCS: 36416; 97605; A4218; J2001

== ENCOUNTER 2018-07-11 09:43 | Outpatient (CLI) | payer SELFPAY ==
[~2018-07-11 09:43] MED LIST: Lidocaine 4% Topical Sol 50 ML BOT ONE; Sodium Chloride 0.9% 15 ML NEB ONE
--- NOTE | 2018-07-11 12:22 | HP ---
DATE OF SERVICE: 07/11/2018 HISTORY OF PRESENT ILLNESS: Mr. Mike Dyer is a very pleasant 58-year-old gentleman who present s to the Wound Center for evaluation of a wound of the left foot subsequent to left great toe and met atarsal amputation on 07/01/[address] Denis Sears. At surgery, the wound was left open for heal ing by secondary intention. Negative pressure therapy was initiated subsequently during the patient' s hospital stay and upon discharge from [facility], the patient was referred t o the Wound Center for assistance with dressing changes of the wound VAC. The patient was discharged to home on Augmentin 500 mg p.o. b.i.d. x14 days. PAST MEDICAL HISTORY: Diabetes mellitus. PAST SURGICAL HISTORY: 1. [place] teeth removal. 2. Left great toe and metatarsal amputation. MEDICATIONS: 1. Humalog. 2. Metformin. 3. Tylenol. 4. Augmentin. ALLERGIES: No known diagnosed allergies. SOCIAL HISTORY: Negative for tobacco use. The patient admits to the occasional consumption of alcoh ol. FAMILY HISTORY: Significant for diabetes mellitus. The patient states that his paternal grandmother and grandfather were both diagnosed with diabetes mellitus. Family history is negative for coronary artery disease. REVIEW OF SYSTEMS: The patient states that prior to amputation of the left great toe and metatarsal, he had dropped a board on his left forefoot and 2-3 weeks later after stepping in stagnant water, th e wound of his left forefoot markedly worsened in its appearance. PHYSICAL EXAMINATION: VITAL SIGNS: Temperature 98.3, pulse 78, respirations 20, blood pressure 122/77. Accu-Chek 230. GENERAL: A 58-year-old gentleman lying on table in examination room in no acute distress. HEENT: Normocephalic, atraumatic. NECK: No nuchal rigidity. CHEST: Clear to auscultation. CARDIAC: Regular rate and rhythm. ABDOMEN: Soft. EXTREMITIES: A wound of the left foot is present which measures approximately 8.0 x 2.5 cm. Granula tion tissue is present within the wound margins. No purulent drainage is associated with the wound. No erythema of the skin surrounding the wound is present. No maceration of the skin of the periwoun d is noted. A dorsalis pedis pulse and a posterior tibial pulse are both palpable on the left. No s ignificant edema of the left foot is present on exam today. NEUROLOGIC: Grossly nonfocal. ASSESSMENT AND PLAN: 1. Left foot wound as described above. Negative pressure therapy will be continued with dressing ch anges of the wound VAC here in the Wound Center. The patient is to continue Augmentin as previously prescribed. The patient will be seen by Dr. Sears in 1 week. I will see Mr. Dyer again in two week s. 2. Diabetes mellitus. The patient's Accu-Chek in clinic today is 230. The patient has been told th at for optimal wound healing, his blood glucoses should remain below 150.
== END 2018-07-11 09:44 | disposition home or self-care (01) ==
LOC: WCC 09:43
PROVIDERS: ATTEND Family Medicine
DX: T81.89XD Other complications of procedures, not elsewhere classified, subsequent encounter (principal); E11.9 Type 2 diabetes mellitus without complications; Z89.412 Acquired absence of left great toe; Z79.01 Long term (current) use of anticoagulants; Z79.899 Other long term (current) drug therapy
CPT/HCPCS: 97602; 99203; G0463

== ENCOUNTER 2018-07-15 13:59 | Outpatient (CLI) | payer OTHER, SELFPAY ==
[~2018-07-15 13:59] MED LIST changes: +Lidocaine 2% Jelly 5 ML TUBE ONE; -Lidocaine 4% Topical Sol 50 ML BOT ONE
== END 2018-07-15 14:00 | disposition home or self-care (01) ==
LOC: WCC 13:59
PROVIDERS: ATTEND Family Medicine
DX: T81.89XD Other complications of procedures, not elsewhere classified, subsequent encounter (principal)
CPT/HCPCS: 97605; A4218

== ENCOUNTER 2018-07-18 11:20 | Outpatient (CLI) | payer OTHER, SELFPAY ==
[2018-07-18] MEDS ORDERED: Sodium Chloride 0.9% 15 ML NEB ONE (15:25)
[2018-07-18] MEDS ORDERED: Lidocaine 4% Topical Sol 50 ML BOT ONE (15:25)
== END 2018-07-18 11:21 | disposition home or self-care (01) ==
LOC: WCC 11:20
PROVIDERS: ATTEND Family Medicine
DX: T81.89XD Other complications of procedures, not elsewhere classified, subsequent encounter (principal)
CPT/HCPCS: 97605; A4218; J2001

== ENCOUNTER 2018-07-22 13:52 | Outpatient (CLI) | payer OTHER, SELFPAY ==
[2018-07-22] MEDS ORDERED: Sodium Chloride 0.9% 15 ML NEB ONE (15:49)
== END 2018-07-22 13:53 | disposition home or self-care (01) ==
LOC: WCC 13:52
PROVIDERS: ATTEND Family Medicine
DX: T81.89XD Other complications of procedures, not elsewhere classified, subsequent encounter (principal)
CPT/HCPCS: 97605; A4218

== ENCOUNTER 2018-07-25 07:56 | Outpatient (CLI) | payer SELFPAY ==
--- NOTE | 2018-07-25 09:28 | PRG ---
DATE OF SERVICE: 07/25/2018 HISTORY: Mr. Mike Dyer is a very pleasant 58-year-old gentleman who presents to the Wound Cent er for evaluation of a wound of the left foot subsequent to left great toe and metatarsal amputation on 07/01/[address] Denis Sears. At surgery, the wound was left open for healing by secondary in tention. Negative pressure therapy was initiated subsequently. During the patient's hospital stay a nd upon discharge from [facility], the patient was referred to the Wound Cente for assistance with dressing changes of the wound VAC. The patient was discharged to home on Augme ntin 500 mg p.o. b.i.d. x14 days. PHYSICAL EXAMINATION: VITAL SIGNS: Temperature 98.5, pulse 83, respirations 18, blood pressure 147/65. Accu-Chek 101. EXTREMITIES: A wound of the left foot is present which measures approximately 7.2 x 1.3 cm. The dim ensions of the wound at the time of the patient's visit on 07/11/2018 were approximately 8.0 x 2.5 cm . Granulation tissue is present within the wound margins. No purulent drainage is associated with t he wound. No erythema of the skin surrounding the wound is present. No maceration of the skin of th e periwound is noted. A dorsalis pedis pulse and a posterior tibial pulse are both palpable on the l eft. No significant edema of the left foot is present on exam today. ASSESSMENT AND PLAN: 1. Left foot wound as described above. Negative pressure therapy will be continued with dressing ch anges of the wound VAC here in the Wound Center. The patient will be seen by Dr. Sears in 1 week. I will see Mr. Dyer again in 2 weeks. 2. Diabetes mellitus. The patient's Accu-Chek in clinic today is 101. The patient has been reminde d that for optimal wound healing, his blood glucoses should remain below 150.
[2018-07-25] MEDS ORDERED: Sodium Chloride 0.9% 15 ML NEB ONE (15:54)
== END 2018-07-25 07:57 | disposition home or self-care (01) ==
LOC: WCC 07:56
PROVIDERS: ATTEND Family Medicine
DX: Z47.81 Encounter for orthopedic aftercare following surgical amputation (principal); E11.9 Type 2 diabetes mellitus without complications; Z89.432 Acquired absence of left foot
CPT/HCPCS: 97605; A4218

== ENCOUNTER 2018-07-29 09:15 | Outpatient (CLI) | payer OTHER, SELFPAY | END 2018-07-29 09:16 | disposition home or self-care (01) | LOC: WCC 09:15 | PROVIDERS: ATTEND Family Medicine | DX: T81.89XD Other complications of procedures, not elsewhere classified, subsequent encounter (principal) | CPT/HCPCS: 97605 ==

== ENCOUNTER 2018-08-01 08:26 | Outpatient (CLI) | payer OTHER, SELFPAY ==
[2018-08-01] MEDS ORDERED: Sodium Chloride 0.9% 15 ML NEB ONE (08:59)
== END 2018-08-01 08:27 | disposition home or self-care (01) ==
LOC: WCC 08:26
PROVIDERS: ATTEND Family Medicine
DX: T81.89XD Other complications of procedures, not elsewhere classified, subsequent encounter (principal)
CPT/HCPCS: 97605; A4218

== ENCOUNTER 2018-08-05 13:42 | Outpatient (CLI) | payer OTHER, SELFPAY ==
[2018-08-05] MEDS ORDERED: Sodium Chloride 0.9% 15 ML NEB ONE (20:00)
== END 2018-08-05 13:43 | disposition home or self-care (01) ==
LOC: WCC 13:42
PROVIDERS: ATTEND Family Medicine
DX: T81.89XD Other complications of procedures, not elsewhere classified, subsequent encounter (principal)
CPT/HCPCS: 97602; A4218

== ENCOUNTER 2018-08-08 08:57 | Outpatient (CLI) | payer OTHER, SELFPAY ==
[2018-08-08] MEDS ORDERED: Sodium Chloride 0.9% 15 ML NEB ONE (15:47)
== END 2018-08-08 08:58 | disposition home or self-care (01) ==
LOC: WCC 08:57
PROVIDERS: ATTEND Family Medicine
DX: T81.89XD Other complications of procedures, not elsewhere classified, subsequent encounter (principal)
CPT/HCPCS: 97605; A4218